=== PATIENT | female | born 1990 | race Caucasian/White ===

== ENCOUNTER 2024-06-08 10:36 | Outpatient (CLI) | payer BC | END 2024-06-08 10:37 | disposition home or self-care (01) | LOC: CSHRAD 10:36 | PROVIDERS: ATTEND Family Medicine | DX: R07.81 Pleurodynia (principal); S22.42XA Multiple fractures of ribs, left side, initial encounter for closed fracture; J90 Pleural effusion, not elsewhere classified ==

== ENCOUNTER 2024-06-21 07:18 | Outpatient (CLI) | payer BC ==
[2024-06-21] MEDS ORDERED: Iopamidol 300 61% 100 ML VIAL FS ONE (11:01)
== END 2024-06-21 07:19 | disposition home or self-care (01) ==
LOC: CSHCT 07:18
PROVIDERS: ATTEND Family Medicine
DX: J90 Pleural effusion, not elsewhere classified (principal); S22.42XD Multiple fractures of ribs, left side, subsequent encounter for fracture with routine healing
CPT/HCPCS: 71270; Q9967